=== PATIENT | male | born 1945 | race Caucasian/White ===

== ENCOUNTER → 2017-10-11 | Outpatient (CLI) | payer OTHER ==
[2017-10-11] VITALS (10 sets, daily range): BP systolic 134–173; BP diastolic 42–60
[~2017-10-11] MED LIST: ADULT LOW DOSE81 MG PO; ALLOPURINOL 10100 M3 PO; BENTYL 20 MG TA20 M1 PO; CARVEDILOL12.5 MG PO; CELEXA40 MG PO; CHLORTHALIDONE25 MG PO; CLEOCIN HCL300 MG PO; CLONAZEPAM 1 MG1 M1 PO; COLCRYS 0.6 MG0.6 MG PO; DICLOFENAC SODI75 MG PO; GLUCOPHAGE500 MG PO; KEFLEX250 MG PO; LASIX 40 MG TAB40 M1 PO; LASIX 40 MG TAB40 M2 PO; LIPITOR20 MG PO; LISINOPRIL20 MG PO; LISINOPRIL30 MG PO; LOPRESSOR 50 MG50 M1 PO; LOPRESSOR100 MG PO; LOPRESSOR25 PO; MEDROLDOSEPACK PO; METFORMIN HCL500 M2 PO; NORCO 5-325 TA1 EAC1 PO; NORVASC10 MG PO; PERCOCET 5-3251 EACH PO; POTASSIUM20 PO; PREDNISONE 10 M10 MG; PRINIVIL20 MG PO; ROBAXIN500 MG PO; SYMBICORT160 MCG/4.; TOPROL XL50 MG PO; XANAX 0.25 MG0.25 MG PO; XANAX 0.5 MG0.5 M1 PO; ZOLOFT50 MG PO
--- NOTE | 2017-10-11 14:36 | TEE ---
[place] [address] TRANSESOPHAGEAL ECHOCARDIOGRAM Name: FELICIA MELENDEZ Room: [facility]#: [id number] Admission: 10/11/17 Attend Phys: Lukas Membreno, Discharge: Date of : 47 Date of Service: 10/11/17 1436 Report #: [id number] THIS REPORT FOR: //name// APPROVED REPORT Study performed: 10/11/2017 10:20:47 EXAM: Transesophageal Echocardiogram Patient Location: Out-Patient Status: routine BSA: 2.77 HR: 56 bpm BP: 134/42 mmHg Rhythm: NSR Other Information Study Quality: Good Indications Aortic Valve Disease Echo Enhancing Agent Indication: Rule out Shunt Agent(s) / Amount(s) Used: Agitated Saline 10 cc 2D Dimensions LVOT Diam: 21.18 (18-24mm) Aortic Valve AoV Peak Luis Angel.: 3.22 m/s AO Peak Gr.: 41.44 mmHg LVOT Max P.85 mmHg AO Mean Gr.: 26.52 mmHg LVOT Mean P.04 mmHg LVOT Max V: 0.98 m/s AO V2 VTI: 85.22 cm LVOT Mean V: 0.66 m/s CHARLI (VTI): 1.17 cm2 LVOT V1 VTI: 28.23 cm Procedure After obtaining informed consent, patient underwent transesophageal echo in the [employer]. Type of Sedation : Conscious Sedation Sedation was administered by Yaneth Clark RN. Sedation start time: 1016 Case end Time: 103 Sedation was achieved intravenously with: Versed (3) Fentanyl (75) Transesophageal probe was inserted [place] [address] TRANSESOPHAGEAL ECHOCARDIOGRAM Name: FELICIA MELENDEZ Room: [facility]#: [id number] Admission: 10/11/17 Attend Phys: Lukas Membreno, Discharge: Date of : 47 Date of Service: 10/11/17 1436 Report #: [id number] without difficulty by Lukas Membreno MD, [facility]. Echo enhancement indication: R/O Septal defect. Echo enhancement agent administered: Agitated Saline The ABRIL was performed without complications. Throughout the procedure, the blood pressure, pulse oximetry, cardiac rhythm, and rate were monitored. The patient tolerated the procedure without adverse effects. Recovery from conscious sedation was uneventful and vital signs were stable. Left Ventricle The left ventricle is normal size. There is normal LV segmental wall motion. There is normal left ventricular wall thickness. Left ventricular systolic function is normal. LVEF is 55-60%. Right Ventricle The right ventricle is normal size. The right ventricular systolic function is normal. Atria No thrombus is visualized in the left atrium or appendage. Interatrial septum is intact without evidence of ASD or PFO. The right atrium size is normal. Aortic Valve The aortic valve is normal in structure. Bioprosthetic aortic valve is present. No aortic regurgitation is present. Moderate aortic stenosis. Mitral Valve The mitral valve is normal in structure. Moderate to severe mitral regurgitation No evidence of mitral valve stenosis. Tricuspid Valve The tricuspid valve is normal in structure. Moderate tricuspid regurgitation. Pulmonic Valve The pulmonary valve is normal in structure. There is no pulmonic valvular regurgitation. Great Vessels The aortic root is normal in size. Descending aorta is not well visualized. Ascending [place] [address] TRANSESOPHAGEAL ECHOCARDIOGRAM Name: FELICIA MELENDEZ [facility] Room: [facility]#: [id number] Admission: 10/11/17 Attend Phys: Lukas Membreno, Discharge: Date of : 47 Date of Service: 10/11/17 1436 Report #: [id number] Pericardium There is no pericardial effusion. <Conclusion> The left ventricle is normal size. There is normal left ventricular wall thickness. Left ventricular systolic function is normal. LVEF is 55-60%. Interatrial septum is intact without evidence of ASD or PFO. Bioprosthetic aortic valve is present. Moderate aortic stenosis. No thrombus is visualized in the left atrium or appendage. Moderate to severe mitral regurgitation <ELECTRONICALLY SIGNED> By: Lukas Membreno MD, [facility] 10/11/17 1436 1436 1436 Lukas Membreno MD, [facility] /INF
== END | disposition home or self-care (01) ==
LOC: M.CL 09:13
DX: I35.0 Nonrheumatic aortic (valve) stenosis (principal); I34.0 Nonrheumatic mitral (valve) insufficiency; Z95.2 Presence of prosthetic heart valve; Z88.0 Allergy status to penicillin; Z79.899 Other long term (current) drug therapy; Z79.82 Long term (current) use of aspirin